=== PATIENT | male | born 1955 | race African-American/Black ===

== ENCOUNTER 2017-12-29 10:30 | Emergency (ER) | payer OTHER ==
[2017-12-29 10:48] VITALS: BP 134/86; PULSE 64; TEMP 97.6; BMI 25.8
[2017-12-29] MEDS ORDERED: IBUPROFEN 600 MG TABLET (FP) PO ONE ×2 (12:12→12:21)
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
== END 2017-12-29 12:26 | disposition home or self-care (01) ==
LOC: JERFT 10:30
DX: S39.012A Strain of muscle, fascia and tendon of lower back, initial encounter (principal); V49.49XA Driver injured in collision with other motor vehicles in traffic accident, initial encounter; Y92.488 Other paved roadways as the place of occurrence of the external cause; Y93.89 Activity, other specified; Y99.8 Other external cause status
CPT/HCPCS: 99281-25

== ENCOUNTER 2020-08-19 10:24 | Emergency (ER) | payer OTHER ==
[2020-08-19 10:34] VITALS: BP 158/84; PULSE 90; TEMP 98; BMI 25.7
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
== END 2020-08-19 10:52 | disposition home or self-care (01) ==
LOC: JERFT 10:24
DX: T22.211A Burn of second degree of right forearm, initial encounter (principal)
CPT/HCPCS: 99281-25